=== PATIENT | male | born 1955 | race Caucasian/White ===

== ENCOUNTER 2017-09-26 16:36 | Emergency (ER) | payer BC ==
[2017-09-26] MEDS ORDERED: Lidocaine 1% with EPINEPHrine 1:100,000 50 ML MDV SUBCUT STA (16:49)
--- NOTE | 2017-09-26 17:12 | EDM.PDOC ---
ED HPI GENERAL MEDICAL PROBLEM - General Chief Complaint: Laceration Stated Complaint: FISH HOOK IN RIGHT FOREARM Time Seen by Provider: 09/26/17 16:56 Source of Information: Reports: Patient History Limitations: Reports: No Limitations - History of Present Illness INITIAL COMMENTS - FREE TEXT/NARRATIVE: fishhook to right forearm today utd with tetanus he denies any other complaints full rom Onset: Today Location: Reports: Upper Extremity, Right Improves with: Reports: None Worsens with: Reports: None - Related Data Allergies Allergy/AdvReac Type Severity Reaction Status Date / Time No Known Allergies Allergy Verified 09/26/17 17:00 Home Meds: Home Meds Doxycycline [Vibramycin] 1 tab PO BID 09/26/17 [History] Past Medical History Oncologic (Cancer) History: Reports: Other (See Below) Other Oncologic History: sarcadosis - Infectious Disease History Infectious Disease History: Reports: Chicken Pox, Measles, Mumps - Past Surgical History Musculoskeletal Surgical History: Reports: Knee Replacement Social & Family History - Tobacco Use Smoking Status *Q: Light Tobacco Smoker Years of Tobacco use: 10 Packs/Tins Daily: 0.5 - Caffeine Use Caffeine Use: Reports: Coffee - Recreational Drug Use Recreational Drug Use: No ED ROS GENERAL - Review of Systems Review Of Systems: ROS reveals no pertinent complaints other than HPI. ED EXAM, SKIN/RASH Exam: See Below Exam Limited By: No Limitations General Appearance: Alert, WD/WN, No Apparent Distress Head: Atraumatic, Normocephalic Neck: Full Range of Motion Respiratory/Chest: Normal Breath Sounds, No Accessory Muscle Use Peripheral Pulses: 4+: Radial (R) Extremities: Normal Range of Motion, Normal Capillary Refill, Other (fish hook to the right forearm) Neurological: Alert, Oriented ED SKIN PROCEDURES - Foreign Body Removal Indication:: fish hook, right forearm Consent Obtained:: Patient Performing Doctor:: Cristine Martinez Foreign Body Other Location Comment:: right forearm Anesthesia Type: Local (1% with epi) Findings:: easily able to push through and clip the ronni without complication Complications:: No Course - Vital Signs Last Recorded V/S: Last Vital Signs Temp 96.8 F 09/26/17 17:10 Pulse 68 09/26/17 17:10 Resp 18 09/26/17 17:10 BP 143/80 H 09/26/17 17:10 Pulse Ox 98 09/26/17 17:10 - Orders/Labs/Meds Meds: Medications Discontinued Medications Generic Name Dose Route Start Last Admin Trade Name [place] PRN Reason Stop Dose Admin Lidocaine/Epinephrine 20 ml 09/26/17 16:49 09/26/17 17:13 Xylocaine 1% With Epinephrine 1:100,000 SUBCUT 09/26/17 16:50 50 ml NOW STA Administration Departure - Departure Time of Disposition: 17:50 Disposition: Home, Self-Care 01 Condition: Good Clinical Impression: Fish hook injury of right upper arm - Discharge Information Instructions: Puncture Wound, [id number] Referrals: PCP,None [Primary Care Provider] - Forms: ED Department Discharge Additional Instructions: Keep site clean and dry watch for infection Follow up as needed call with questions - Problem List & Annotations (1) Fish hook injury of right upper arm SNOMED Code(s): 761985729 Code(s): S49.91XA - UNSP INJURY OF RIGHT SHOULDER AND UPPER ARM, INIT ENCNTR Status: Acute Priority: Low - Problem List Review Problem List Initiated/Reviewed/Updated: Yes
== END 2017-09-26 17:28 | disposition home or self-care (01) ==
LOC: JP.ED 16:36
DX: S50.851A Superficial foreign body of right forearm, initial encounter (principal); F17.210 Nicotine dependence, cigarettes, uncomplicated; W45.8XXA Other foreign body or object entering through skin, initial encounter
CPT/HCPCS: 99283

== ENCOUNTER 2018-09-22 19:34 | Emergency (ER) | payer BC ==
--- NOTE | 2018-09-22 20:34 | EDM.PDOC ---
ED HPI GENERAL MEDICAL PROBLEM - General Chief Complaint: Syncope Time Seen by Provider: 09/22/18 20:26 Source of Information: Reports: Patient, EMS, Family, RN Notes Reviewed History Limitations: Reports: No Limitations - History of Present Illness INITIAL COMMENTS - FREE TEXT/NARRATIVE: 63-year-old gentleman presents to the emergency department today with a syncopal event, he was at a family gathering earlier today felt lightheaded was able to contact his describes symptoms sat down and then passed out. Estimated was out for 2-3 minutes awoke he was not confused he was aware of his situation. States he's been eating and drinking okay today he did have an event similar to this after a knee surgery where he became syncopal. Did review the EKG done by paramedics prior to arrival my review is no ischemia is appreciated - Related Data Allergies Allergy/AdvReac Type Severity Reaction Status Date / Time No Known Allergies Allergy Verified 09/22/18 19:47 Home Meds: Home Meds NK [No Known Home Meds] 09/22/18 [History] Past Medical History Other Respiratory History: SARCOIDOSIS Oncologic (Cancer) History: Reports: Other (See Below) Other Oncologic History: sarcadosis - Infectious Disease History Infectious Disease History: Reports: Chicken Pox, Measles, Mumps - Past Surgical History Musculoskeletal Surgical History: Reports: Knee Replacement Social & Family History - Tobacco Use Smoking Status *Q: Never Smoker - Caffeine Use Caffeine Use: Reports: Coffee ED ROS GENERAL - Review of Systems Review Of Systems: See Below Constitutional: Reports: No Symptoms HEENT: Reports: No Symptoms Respiratory: Reports: No Symptoms Cardiovascular: Reports: Syncope GI/Abdominal: Reports: No Symptoms Neurological: Reports: Syncope - Physical Exam Exam: See Below Exam Limited By: No Limitations General Appearance: Alert, WD/WN, No Apparent Distress Respiratory/Chest: No Respiratory Distress, Lungs Clear, Normal Breath Sounds, No Accessory Muscle Use, Chest Non-Tender Cardiovascular: Regular Rate, Rhythm, No Murmur Neuro Exam (Abbreviated): Alert, Oriented, CN II-XII Intact, Normal Cognition, Normal Gait Course - Vital Signs Last Recorded V/S: Last Vital Signs Temp 96.5 F 09/22/18 20:03 Pulse 60 09/22/18 20:03 Resp 16 09/22/18 20:03 BP 125/83 09/22/18 20:03 Pulse Ox 96 09/22/18 20:03 - Orders/Labs/Meds Orders: Active Orders 24 hr Category Date Time Status Cardiac Monitoring [RC] .As Directed Care 09/22/18 20:32 Active Labs: Laboratory Tests 09/22/18 09/22/18 Range/Units 20:31 20:31 WBC 8.5 (4.5-11.0) K/uL RBC 4.54 (4.30-5.90) M/uL Hgb 15.1 H (12.0-15.0) g/dL Hct 43.4 (40.0-54.0) % MCV 96 (80-98) fL MCH 33 H (27-31) pg MCHC 35 (32-36) % Plt Count 244 (150-400) K/uL Neut % (Auto) 75 H (36-66) % Lymph % (Auto) 12 L (24-44) % [place] % (Auto) 11 H (2-6) % Eos % (Auto) 1 L (2-4) % Baso % (Auto) 0 (0-1) % Sodium 141 (140-148) mmol/L Potassium 3.7 (3.6-5.2) mmol/L Chloride 105 (100-108) mmol/L Carbon Dioxide 27 (21-32) mmol/L Anion Gap 9.1 (5.0-14.0) mmol/L BUN 24 H (7-18) mg/dL Creatinine 1.4 H (0.8-1.3) mg/dL Est Cr Clr Drug Dosing 55.04 mL/min Estimated GFR (MDRD) 51 L (>60) Glucose 88 (74-106) mg/dL Calcium 8.5 (8.5-10.1) mg/dL Troponin I < 0.017 (0.000-0.056) ng/mL Departure - Departure Time of Disposition: 21:28 Disposition: Home, Self-Care 01 Condition: Fair Clinical Impression: Syncope Qualifiers: Syncope type: heat syncope Encounter type: initial encounter Qualified Code(s) : T67.1XXA - Heat syncope, initial encounter - Discharge Information Instructions: Syncope, [id number] Referrals: PCP,None [Primary Care Provider] - Forms: ED Department Discharge Additional Instructions: Continue to push fluids, follow-up with your primary care upon returning home, call return to the ED with worsening of symptoms - My Orders Last 24 Hours: My Active Orders 09/22/18 20:32 Cardiac Monitoring [RC] .As Directed - Assessment/Plan Last 24 Hours: My Active Orders 09/22/18 20:32 Cardiac Monitoring [RC] .As Directed Plan: Assessment Acuity = acute Site and laterality = syncopal event Etiology = suspicious for dehydration Manifestations = none Location of injury = Home Lab values = CBC unremarkable, creatinine elevated 1.4 consistent acute renal failure stage G IIIB, EKG per EMS demonstrates normal sinus rhythm no signs of ischemia Plan I did review lab work with him he is going to continue to push fluids follow-up primary care upon returning home This note was dictated using [employer] voice recognition software please call with any questions on syntax or grammar.
== END 2018-09-22 21:48 | disposition home or self-care (01) ==
LOC: JP.ED 19:34
DX: T67.1XXA Heat syncope, initial encounter (principal)
CPT/HCPCS: 36415; 80048; 84484; 85025; 99284

== ENCOUNTER 2022-07-21 07:03 | Day surgery (SDC) | payer BC, MEDICARE ==
[2022-07-21] MEDS ORDERED: Propofol 200 MG/20 ML SDV ONE (07:16)
[2022-07-21] MEDS ORDERED: fentaNYL 50 MCG/ML SDV ONE (07:16)
[2022-07-21] MEDS ORDERED: Midazolam 1 MG/ML 2 ML SDV ONE (07:16)
[2022-07-21] MEDS ORDERED: Lactated Ringers 1,000 ML IV SCH (07:30)
== END 2022-07-21 09:50 | disposition home or self-care (01) ==
LOC: JP.SDS 07:03
PROVIDERS: ATTEND Family Medicine
DX: Z12.11 Encounter for screening for malignant neoplasm of colon (principal); D12.5 Benign neoplasm of sigmoid colon; K64.8 Other hemorrhoids; I48.91 Unspecified atrial fibrillation; K21.9 Gastro-esophageal reflux disease without esophagitis; F41.9 Anxiety disorder, unspecified; Z79.01 Long term (current) use of anticoagulants; Z98.890 Other specified postprocedural states
CPT/HCPCS: 45380; 88305; J2250; J2704; J3010; J7120

== ENCOUNTER 2025-02-11 16:55 | Emergency (ER) | payer MEDICARE | END 2025-02-11 18:23 | disposition home or self-care (01) | LOC: JP.ED 16:55 | DX: S83.92XA Sprain of unspecified site of left knee, initial encounter (principal); Z79.899 Other long term (current) drug therapy; Z86.16 Personal history of COVID-19; W20.8XXA Other cause of strike by thrown, projected or falling object, initial encounter | CPT/HCPCS: 73562-26-LT; 73562-LT; 99283 ==

== ENCOUNTER 2025-02-13 14:43 | Emergency (ER) | payer MEDICARE | END 2025-02-13 16:18 | disposition home or self-care (01) | LOC: JP.ED 14:43 | DX: S72.435A Nondisplaced fracture of medial condyle of left femur, initial encounter for closed fracture (principal); Z86.16 Personal history of COVID-19; Z79.01 Long term (current) use of anticoagulants; Z79.899 Other long term (current) drug therapy; W22.8XXA Striking against or struck by other objects, initial encounter; Y93.H2 Activity, gardening and landscaping | CPT/HCPCS: 73562-26-LT; 73562-LT; 99283 ==